=== PATIENT | female | born 1935 | race Caucasian/White ===

== ENCOUNTER 2021-12-22 09:27 | Inpatient (IN) | payer MEDICARE, OTHER ==
[~2021-12-22] VITALS: Ht 162.6 cm; Wt 60.8 kg
--- NOTE | 2021-12-22 09:34 | NUR ---
TO ER BED 1. BIB RA 860 FROM [place], LACERATION TO BACK OF HEAD S/P GLF, NO LOC PER REPORT. ATTACHED TO MONITOR, VITALS ARE WITHIN NORMAL LIMITS. WARM BLANKET PROVIDED FOR COMFORT. DR PERLA AT BEDSIDE, AWAITING MD ORDERS.
[2021-12-22] MEDS ORDERED: AMMO225L14 TP (09:43)
[2021-12-22] MEDS ORDERED: TIMO5DRO35 EACHEYE (09:43)
[2021-12-22] MEDS ORDERED: TRAZ-182 PO (09:43)
[2021-12-22] MEDS ORDERED: TURM500C7 PO (09:43)
[2021-12-22] MEDS ORDERED: RISP0.2515 PO (09:43)
[2021-12-22] MEDS ORDERED: MEMA28CA5 PO (09:43)
[2021-12-22] MEDS ORDERED: ICOS1CAP PO (09:43)
[2021-12-22] MEDS ORDERED: MULT-754 PO (09:43)
[2021-12-22] MEDS ORDERED: ASCO-317 PO (09:43)
[2021-12-22] MEDS ORDERED: MUPI22OI2 TP (09:43)
[2021-12-22] MEDS ORDERED: FURO-145 PO (09:43)
[2021-12-22] MEDS ORDERED: TRIA15CR2 TP (09:43)
[2021-12-22] MEDS ORDERED: CHOL100043 PO (09:43)
[2021-12-22] MEDS ORDERED: POTA8TAB3 PO (09:43)
[2021-12-22] MEDS ORDERED: CITA20TA16 PO (09:43)
[2021-12-22] MEDS ORDERED: CALC500T52 PO (09:43)
[2021-12-22] MEDS ORDERED: ZOLP5TAB8 PO (09:43)
--- NOTE | 2021-12-22 09:50 | NUR ---
PT TAKEN TO RADIOLOGY FOR CT
--- NOTE | 2021-12-22 09:58 | NUR ---
PT RETURNED FROM CT VIA [facility]
--- NOTE | 2021-12-22 10:02 | NUR ---
COVID TEST COLLECTED AND SENT
--- NOTE | 2021-12-22 10:19 | NUR ---
PT TO RADIOLOGY FOR CERVICAL SPINE CT SCAN VIA [facility].
[2021-12-22 10:34] LABS: BASOPHILS % (AUTO) 0.3 % (0.0-2.0); EOSINOPHILS % (AUTO) 22.9 % (0.0-6.0); HEMATOCRIT 39 % (33-45); HEMOGLOBIN 13.2 g/dL (11.5-14.8); LYMPHOCYTES # (AUTO) 1.4 K/uL (0.8-4.8); LYMPHOCYTES % (AUTO) 17.6 % (20.0-44.0); MEAN CORPUSCULAR HGB CONC 34 g/dl (31.0-36.0); MEAN CORPUSCULAR VOLUME 91 fL (82-100); MONOCYTES # (AUTO) 0.7 K/uL (0.1-1.30); MONOCYTES % (AUTO) 8.2 % (2.0-12.0); NEUTROPHILS # (AUTO) 4.2 K/uL (1.8-8.9); PLATELET COUNT (AUTO) 255 K/uL (150-450); RED BLOOD CELL COUNT(AUTO) 4.35 MIL/uL (4.0-5.2); WHITE BLOOD COUNT (AUTO) 8.1 K/uL (4.3-11.0)
[2021-12-22 10:54] LABS: CALCIUM, SERUM 9.1 mg/dL (8.5-10.1); CARBON DIOXIDE 23 mmol/L (21-32); CHLORIDE 105 mmol/L (98-107); CREATININE 0.8 mg/dL (0.6-1.3); GLUCOSE 102 mg/dL (74-106); POTASSIUM 5.2 mmol/L (3.5-5.1); SODIUM SERUM 136 mmol/L (136-145); UREA NITROGEN, BLOOD 21 mg/dL (7-18)
[2021-12-22 11:08] LABS: ALANINE AMINOTRANSFERASE 21 U/L (12-78); ALBUMIN 3.2 g/dL (3.4-5.0); ALKALINE PHOSPHATASE 100 U/L (46-116); ASPARTATE AMINOTRANSFERASE 56 U/L (15-37); BILIRUBIN,TOTAL 0.6 mg/dL (0.2-1.0); TOTAL PROTEIN, SERUM 7.4 g/dL (6.4-8.2)
[2021-12-22 11:19] LABS: EOSINOPHILS % (MANUAL) 26 % (0-4); LYMPHOCYTES % (MANUAL) 24 % (16-48); MONOCYTES % (MANUAL) 4 % (0-11.0); NEUTROPHILS % (MANUAL) 46 (42-76)
[2021-12-22] MEDS ORDERED: Z GUARD REMEDY 4 OZ OINT TP PRN (11:30)
[2021-12-22] MEDS ORDERED: HYDROCODONE/APAP 5/325MG TABLET PO PRN (11:30)
[2021-12-22] MEDS ORDERED: MAGNESIUM HYDROXIDE 30 ML UDC PO PRN (11:30)
[2021-12-22] MEDS ORDERED: MAG HYDROX/AL HYDROX/SIMETH 30 ML UDC PO PRN (11:30)
[2021-12-22] MEDS ORDERED: ONDANSETRON HCL/PF 4 MG/2 ML VIAL IVP PRN (11:30)
[2021-12-22] MEDS ORDERED: ACETAMINOPHEN 325 MG TABLET PO PRN (11:30)
--- NOTE | 2021-12-22 11:40 | NUR ---
LAB CONFIRMED DESK REPRESENTATIVE OF COVID SWAB SPECIMEN
--- NOTE | 2021-12-22 13:06 | NUR ---
GOT BED 109
--- NOTE | 2021-12-22 13:19 | NUR ---
NEW BED GIVEN 116-1
--- NOTE | 2021-12-22 13:44 | NUR ---
PT TRANSFERRED TO [facility] VIA [facility]. WARM HANDOFF GIVEN TO AVI CARSON Addendum: 12/22/21 at 1353 by ANNE-MARIE TRANSFERRED VIA ACLS PROTOCOL W/ RN AND TRANSPORTER W/ PT.
--- NOTE | 2021-12-22 14:00 | NUR ---
telemetry monitor note received patient from ER.patient stable vital signs. patient is confused. patient is on room air tolerating at above 95%. patient is fall risk. all safety precautions. call light within reach. bed locked at lowest position.side rails up x2.
--- NOTE | 2021-12-22 14:30 | NUR ---
TELEVISION MAINTENANCE MAN NOTE PATIENT STABLE VITAL SIGNS TEMP 98.3 , HR 94, RR 20 , 02 95% BP 152/89
--- NOTE | 2021-12-22 16:00 | NUR ---
NOTIFIED DR. TSANG THAT PATIENT IS REFUSING TO WEAR TELE MONITOR, AND ATTEMPTS TO PULL ON IV TUBING AND IF RESTRAINTS CAN BE ORDERED.
[2021-12-22] MEDS: MUPIROCIN OINT 2% 22 GM TUBE TP SCH ×2 (17:00→17:58)
[2021-12-22] MEDS: MEMANTINE HCL 5 MG TABLET PO SCH (17:58)
[2021-12-22] MEDS: risperiDONE 0.25 MG TABLET PO SCH (17:58)
[2021-12-22] MEDS: AMMONIUM LACTATE 227 GM BOTTLE TP SCH (18:36)
--- NOTE | 2021-12-22 19:55 | NUR ---
MED SURGE RN OPEN NOTE: ALERT TO NAME. VERBALLY RESPONSIVE. MOIST ORAL MUCOSA. UNLABORED BREATHING AT ROOM AIR. O2 SAT 97 %. CONTINUE TO NOTE GENERALIZED RASHES. NO COMPLAINS OF ITCHING. SCAB ON RIGHT LEG AND LACERATION ON HEAD WITH NO BLEEDING. PERIPHERAL IV SALINE LOCKED ON RIGHT FOREARM G20. PATENT AND WITH NO S/S OF COMPLICATIONS. DECLINES PAIN OR DISCOMFORT. HOB ELEVATED AT 30 DEGREE ANGLE. BILATERAL HALF SIDE RAILS UPX2. BED LOCKED, IN LOW POSITION WITH EXIT ALARM, CALL LIGHT IN REACH. FALL PRECAUTIONS MAINTAINED.
[2021-12-22 20:00] VITALS: BP 115/76
--- NOTE | 2021-12-22 20:28 | NUR ---
RN CLOSING NOTE PATIENT IS ALERT AND ORIENTED X1. PATIENT HAS EPISODES OF CONFUSION. PATIENT HAS RIGHT IV. IV PATENT AND FLUSHES WELL. PATIENT IS MED SURG STATUS. PATIENT IS ON ROOM AIR SATURATING AT 100%. KEPT CLEAN AND DRY. ALL SAFETY MEASURES IN PLACE. CALL LIGHT WITHIN REACH. BED LOCKED AT LOWEST POSITION. BEDSIDE TABLE NEXT TO PATIENT.
[2021-12-22] MEDS: TRAZODONE 50 MG TABLET PO SCH (22:22)
[2021-12-23] VITALS: BP 131/68
[2021-12-23 06:00] VITALS: BP 115/76
--- NOTE | 2021-12-23 06:30 | NUR ---
MED SURGE RN CLOSING NOTE: ALERT TO NAME. VERBALLY RESPONSIVE. MOIST ORAL MUCOSA. UNLABORED BREATHING AT ROOM AIR. O2 SAT 95 %. CONTINUE TO NOTE GENERALIZED RASHES. NO COMPLAINS OF ITCHING. SCAB ON RIGHT LEG AND LACERATION ON HEAD WITH NO BLEEDING KEPT CLEAN AND DRY. NOTED WITH PERIPHERAL IV SALINE LOCKED ON RIGHT FOREARM G20 TO BE PULLED OUT BY PATIENT. PRESSURE APPLIED DUE TO MINIMAL BLEEDING. ATTEMPTED TO INSERT A NEW LINE BUT REFUSED, RISKS VS BENEFITS EXPLAINED AND STILL REFUSED. OFFERED TIMES THREE. PATENT AND WITH NO S/S OF COMPLICATIONS. DECLINES PAIN OR DISCOMFORT. HOB ELEVATED AT 30 DEGREE ANGLE. BILATERAL HALF SIDE RAILS UPX2. BED LOCKED, IN LOW POSITION WITH EXIT ALARM, CALL LIGHT IN REACH. FALL PRECAUTIONS MAINTAINED. CONTINUE TO REFUSE TELE MONITOR.
[2021-12-23 07:26] LABS: BASOPHILS % (AUTO) 0.5 % (0.0-2.0); HEMATOCRIT 38 % (33-45); HEMOGLOBIN 12.5 g/dL (11.5-14.8); LYMPHOCYTES # (AUTO) 1.4 K/uL (0.8-4.8); LYMPHOCYTES % (AUTO) 17.2 % (20.0-44.0); MEAN CORPUSCULAR HGB CONC 33 g/dl (31.0-36.0); MEAN CORPUSCULAR VOLUME 93 fL (82-100); MONOCYTES # (AUTO) 0.7 K/uL (0.1-1.30); MONOCYTES % (AUTO) 8.8 % (2.0-12.0); NEUTROPHILS % (AUTO) 47.2 % (43.0-81.0); PLATELET COUNT (AUTO) 230 K/uL (150-450); RED BLOOD CELL COUNT(AUTO) 4.09 MIL/uL (4.0-5.2); WHITE BLOOD COUNT (AUTO) 8.4 K/uL (4.3-11.0)
--- NOTE | 2021-12-23 07:30 | NUR ---
MED SURGE RN NOTE RECEIVED PATIENT ALERT TO NAME. VERBALLY RESPONSIVE. UNLABORED BREATHING AT ROOM AIR. O2 SAT 97 %. GENERALIZED RASHES. NO COMPLAINS OF ITCHING. SCAB ON RIGHT LEG AND LACERATION ON HEAD WITH NO BLEEDING. NO IV ACCESS NOTED A PATIENT REFUSES. PATENT AND WITH NO S/S OF COMPLICATIONS. DECLINES PAIN OR DISCOMFORT. HOB ELEVATED AT 30 DEGREE ANGLE. BILATERAL HALF SIDE RAILS UPX2. BED LOCKED, IN LOW POSITION WITH EXIT ALARM, CALL LIGHT IN REACH. FALL PRECAUTIONS MAINTAINED.
[2021-12-23 07:33] LABS: CREATININE 0.7 mg/dL (0.6-1.3); MAGNESIUM 2.3 mg/dL (1.8-2.4); PHOSPHORUS 3.5 mg/dL (2.5-4.9); POTASSIUM 3.7 mmol/L (3.5-5.1)
[2021-12-23 07:38] LABS: CALCIUM, SERUM 8.2 mg/dL (8.5-10.1)
[2021-12-23 07:44] LABS: EOSINOPHILS % (AUTO) 26.3 % (0.0-6.0)
[2021-12-23] MEDS: TIMOLOL 0.5% SOLN OPHTH 5 ML BOTTLE OP SCH (09:30)
[2021-12-23] MEDS: CITALOPRAM HYDROBROMIDE 20 MG TABLET PO SCH (09:30)
[2021-12-23] MEDS: CALCIUM CARBONATE (1250) 500 MG TABLET PO SCH (09:30)
[2021-12-23] MEDS: risperiDONE 0.25 MG TABLET PO SCH ×2 (09:30→16:48)
[2021-12-23] MEDS: AMMONIUM LACTATE 227 GM BOTTLE TP SCH ×2 (09:30→18:27)
[2021-12-23] MEDS: MEMANTINE HCL 5 MG TABLET PO SCH ×2 (09:30→16:48)
[2021-12-23] MEDS: PANTOPRAZOLE 40 MG TABLET.DR PO SCH (09:31)
[2021-12-23] MEDS: MUPIROCIN OINT 2% 22 GM TUBE TP SCH ×2 (09:38→18:28)
[2021-12-23 12:16] LABS: LYMPHOCYTES % (MANUAL) 14 % (16-48); MONOCYTES % (MANUAL) 4 % (0-11.0); NEUTROPHILS % (MANUAL) 54 (42-76)
[2021-12-23 12:17] LABS: EOSINOPHILS % (MANUAL) 28 % (0-4)
--- NOTE | 2021-12-23 14:57 | NUR ---
patient laying BP= 131/69 HR= 74 Patient sitting BP= 135/70 HR= 71 standing bp- patient unable to stand due to weakness Addendum: 12/23/21 at 1459 by JESSICA ARAGON RN Amended: Links added.
--- NOTE | 2021-12-23 18:44 | NUR ---
RN CLOSING NOTE PATIENT IS ALERT AND ORIENTED X1. PATIENT HAS EPISODES OF CONFUSION. PATIENT HAS LEFT FOREARM 24 G IV PATENT AND FLUSHES WELL. PATIENT IS MED SURG STATUS. PATIENT IS ON ROOM AIR WITH NO SIGNS OF SOB, NOT IN DISTRESS. PATIENT ON BILATERAL WRIST RESTRAINTS KEPT CLEAN AND DRY.ALL SAFETY MEASURES IN PLACE. CALL LIGHT WITHIN REACH. BED LOCKED AT LOWEST POSITION. WILL ENDORSED TO NIGHT NURSE FOR AMILCAR
--- NOTE | 2021-12-23 19:42 | NUR ---
RN OPENING NOTE PATIENT IS ALERT AND ORIENTED X1. PATIENT HAS EPISODES OF CONFUSION. PATIENT HAS LEFT FOREARM 20 G IV PATENT AND FLUSHES WELL. PATIENT IS ON ROOM AIR WITH NO SIGNS OF SOB, NOT IN DISTRESS. PATIENT ON BILATERAL WRIST RESTRAINTS KEPT CLEAN AND DRY.ALL SAFETY MEASURES IN PLACE. CALL LIGHT WITHIN REACH. BED LOCKED AT LOWEST POSITION.
[2021-12-23 20:00] VITALS: BP 126/58
[2021-12-23] MEDS: TRAZODONE 50 MG TABLET PO SCH (22:01)
--- NOTE | 2021-12-24 06:31 | NUR ---
RN CLOSING NOTE PATIENT IS ALERT AND ORIENTED X1. PATIENT HAS EPISODES OF CONFUSION. PATIENT HAS LEFT FOREARM 20 G IV PATENT AND FLUSHES WELL. PATIENT IS ON ROOM AIR WITH NO SIGNS OF SOB, NOT IN DISTRESS. PATIENT ON BILATERAL WRIST RESTRAINTS KEPT CLEAN AND DRY.ALL SAFETY MEASURES IN PLACE. CALL LIGHT WITHIN REACH. BED LOCKED AT LOWEST POSITION. WILL ENDORSE AMILCAR TO DAY SHIFT NURSE. Addendum: 12/24/21 at 0635 by ELIJAH IQBAL RN PT RESTRAINTS REMOVED Q2HRS AND RANGE OF MOTION EXERCISES DONE.
--- NOTE | 2021-12-24 07:13 | NUR ---
MED SURGE RN NOTE RECEIVED PATIENT ALERT TO NAME. VERBALLY RESPONSIVE. UNLABORED BREATHING AT ROOM AIR. . GENERALIZED RASHES. NO COMPLAINS OF ITCHING. SCAB ON RIGHT LEG AND LACERATION ON HEAD WITH NO BLEEDING. NO IV ACCESS NOTED A PATIENT REFUSES. PATENT AND WITH NO S/S OF COMPLICATIONS. DECLINES PAIN OR DISCOMFORT. HOB ELEVATED AT 30 DEGREE ANGLE. BILATERAL HALF SIDE RAILS UPX2. BED LOCKED, IN LOW POSITION WITH EXIT ALARM, CALL LIGHT IN REACH. FALL PRECAUTIONS MAINTAINED.
[2021-12-24] MEDS: MEMANTINE HCL 5 MG TABLET PO SCH ×2 (08:58→17:15)
[2021-12-24] MEDS: PANTOPRAZOLE 40 MG TABLET.DR PO SCH (08:58)
[2021-12-24] MEDS: risperiDONE 0.25 MG TABLET PO SCH ×2 (08:58→17:15)
[2021-12-24] MEDS: CALCIUM CARBONATE (1250) 500 MG TABLET PO SCH (08:58)
[2021-12-24] MEDS: CITALOPRAM HYDROBROMIDE 20 MG TABLET PO SCH (08:58)
[2021-12-24] MEDS: MUPIROCIN OINT 2% 22 GM TUBE TP SCH ×2 (08:59→17:15)
[2021-12-24] MEDS: AMMONIUM LACTATE 227 GM BOTTLE TP SCH ×2 (08:59→17:16)
--- NOTE | 2021-12-24 09:00 | NUR ---
RN NOTE 0900 EYE DROPS NOT ADMIN DUE TO MEDICATION NOT BEING IN CASSETTE OR AT BED SIDE. CALLED PHARMACY NEW BOTTLE WILL BE SENT TO UNIT
[2021-12-24] MEDS: TIMOLOL 0.5% SOLN OPHTH 5 ML BOTTLE OP SCH (11:59)
--- NOTE | 2021-12-24 18:40 | NUR ---
RN CLOSING NOTE PATIENT IS ALERT AND ORIENTED X1. PATIENT HAS LEFT FOREARM 24 G IV PATENT AND FLUSHES WELL. PATIENT IS ON ROOM AIR WITH NO SIGNS OF SOB, NOT IN DISTRESS. PATIENT ON BILATERAL SOFT WRIST RESTRAINTS KEPT CLEAN AND DRY.ALL SAFETY MEASURES IN PLACE. CALL LIGHT WITHIN REACH. BED LOCKED AT LOWEST POSITION. WILL ENDORSED TO NIGHT NURSE FOR AMILCAR
[2021-12-24 20:00] VITALS: BP 126/56
[2021-12-24] MEDS: TRAZODONE 50 MG TABLET PO SCH (21:56)
--- NOTE | 2021-12-24 22:42 | NUR ---
MS RN OPENING NOTE PT RECEIVED IN BED, AWAKE, A&O X1; PT ONLY ABLE TO STATE FIRST NAME, CALM, COOPERATIVE AND IN NO APPARENT DISTRESS. PT IS ON RA WITH O2SAT OF 94%; NO S/S OF RESP DISTRESS, NO SOB OR COUGH, NON-LABORED AND EQUAL BREATHING. VSS, WILL CONTINUE TO MONITOR NEEDED. PT NOTED TO HAVE BILATERAL SOFT WRIST RESTRAINTS; NO S/S OF IMPAIRED SKIN OR CIRCULATION; WILL PROVIDE PT WITH RELEASE OF RESTRAINTS, FLUIDS, AND HYGIENE. BED IN LOWEST POSITION, CALL LIGHT WITHIN REACH, SIDE RAILS UP X3. WILL CONTINUE TO MONITOR THROUGHOUT THE NIGHT.
[2021-12-25 04:00] VITALS: BP 120/64
--- NOTE | 2021-12-25 06:42 | NUR ---
MS RN CLOSING NOTE PT REMAINS IN BED, ASLEEP BUT EASILY AROUSABLE, A&O X1; PT ONLY ABLE TO STATE FIRST NAME. REMAINS ON RA WITH O2SAT RANGING FROM 94%-97%; NO S/S OF RESP DISTRESS, NO SOB OR COUGH, NON-LABORED AND EQUAL BREATHING; APPEARS COMFORTABLE OVERALL. VSS THROUGHOUT THE WHOLE NIGHT WITH NO SIGNIFICANT CHANGES. BILATERAL SOFT WRIST RESTRAINTS REMAIN IN PLACE WITH NO SIGNS OF IMPAIRED SKIN OR CIRCULATION; PROVIDED PT WITH RELEASE OF RESTRAINTS, FLUIDS, AND HYGIENE. ALL DUE MEDS ADMINISTERED DURING THE NIGHT. BED IN LOWEST POSITION, CALL LIGHT WITHIN REACH, SIDE RAILS UP X3. WILL ENDORSE TO DAYSHIFT NURSE TO CONTINUE CARE.
--- NOTE | 2021-12-25 07:15 | NUR ---
MS rn opening note patient in bed, asleep but easily arousable. patient is alert and oriented x1. patient is confused and has history of dementia. patient remains on room tolerating well. no signs of pain or discomfort.patient has bilateral soft wrist restraints. no skin or circulation noted at this time. all safety measures in place. call light within reach. bed locked at lowest position. side rails up x2. bed alarm on
[2021-12-25] MEDS: PANTOPRAZOLE 40 MG TABLET.DR PO SCH (07:43)
[2021-12-25] MEDS: CALCIUM CARBONATE (1250) 500 MG TABLET PO SCH (08:21)
[2021-12-25] MEDS: TIMOLOL 0.5% SOLN OPHTH 5 ML BOTTLE OP SCH (08:21)
[2021-12-25] MEDS: risperiDONE 0.25 MG TABLET PO SCH (08:21)
[2021-12-25] MEDS: MEMANTINE HCL 5 MG TABLET PO SCH (08:21)
[2021-12-25] MEDS: AMMONIUM LACTATE 227 GM BOTTLE TP SCH (09:00)
--- NOTE | 2021-12-25 13:00 | NUR ---
gave report to [place] nurse.
[2021-12-25] MEDS: MUPIROCIN OINT 2% 22 GM TUBE TP SCH (13:03)
--- NOTE | 2021-12-25 13:05 | NUR ---
gave report to nurse [place]
--- NOTE | 2021-12-25 13:30 | NUR ---
patient discharged. removed iv.patient stable vital signs. returned patient belongings. patient picked up by transportation.
== END 2021-12-25 13:47 | DRG 73 ==
LOC: ER 09:30 → TELE1 13:26 → MEDSG1 15:51
PROVIDERS: ATTEND Nurse Practitioner Acute Care
DX: G90.8 Other disorders of autonomic nervous system (principal); N17.0 Acute kidney failure with tubular necrosis; E44.1 Mild protein-calorie malnutrition; G93.40 Encephalopathy, unspecified; F02.81 Dementia in other diseases classified elsewhere, unspecified severity, with behavioral disturbance; E88.09 Other disorders of plasma-protein metabolism, not elsewhere classified; S01.01XA Laceration without foreign body of scalp, initial encounter; Z20.822 Contact with and (suspected) exposure to COVID-19; G30.9 Alzheimer's disease, unspecified; Z79.899 Other long term (current) drug therapy; M19.90 Unspecified osteoarthritis, unspecified site; E78.5 Hyperlipidemia, unspecified; M81.0 Age-related osteoporosis without current pathological fracture; H40.9 Unspecified glaucoma; W18.30XA Fall on same level, unspecified, initial encounter; Y92.099 Unspecified place in other non-institutional residence as the place of occurrence of the external cause; I50.9 Heart failure, unspecified; I11.0 Hypertensive heart disease with heart failure
CPT/HCPCS: 36415; 70450-TC; 71045-TC; 72125-TC; 80048-TC; 80076-TC; 83735-TC; 84100-TC; 84484-TC; 85025-TC; 85730-TC; 93880-TC; 97116-TC; 97530-TC; A6403; C9803; G0378